=== PATIENT | male | born 1990 | race African-American/Black ===

== ENCOUNTER 2017-02-19 14:41 | Emergency (ER) | payer SELFPAY ==
[~2017-02-19] VITALS: Ht 185.4 cm; Wt 136.4 kg
[~2017-02-19 14:41] MED LIST: AMOXICILLIN500 MG PO; AUGMENTIN500TAB PO; BACTRIM DS1 TAB PO; COGENTIN1 MG PO; CORTISPORIN OTI10 M2 OT; IBUPROFEN200 M1 OR; LORTAB5 PO; NO; RISPERDAL1 MG PO; RISPERDAL2 MG PO; TEGRETOL200 MG PO; VISTARIL50 MG OR; WELLBUTRIN150 MG PO; ZOFRAN ODT4 MG OR
[2017-02-19 15:15] LABS: HEMATOCRIT 50.3 % (39.0-50.0); HEMOGLOBIN 16.6 g/dl (14.0-18.0); IMMATURE GRANULOCYTES 0.4 % (0.0-1.0); MEAN CELL VOLUME 82.3 fL CALC (80.0-100.0); MEAN CORPUSCULAR HGB 27.2 pG CALC (26.0-32.0); NEUT# 6.83 thou/uL (1.82-7.42); RED BLOOD COUNT 6.11 mill/uL (4.70-6.10); RED CELL DISTRI WIDTH 13.9 % (11.5-15.5)
[2017-02-19 15:36] LABS: ALBUMIN 4.9 g/dL (3.2-5.0); ALKALINE PHOSPHATASE 50 u/l (38-126); ANION GAP 19 (6-22 (CALC)); BUN 15 mg/dL (9-20); BUN/CREATININE RATIO 20 (12-20 (CALC)); CALCIUM 10.1 mg/dL (8.4-10.2); CARBON DIOXIDE 21 mmol/l (22-30); CHLORIDE 109 mmol/l (95-108); CREATININE 0.8 mg/dL (0.7-1.3); GFR > 60 ML/MIN (>=60 (CALC)); GFR FOR AFR.AMER. > 60 ML/MIN (>=60 (CALC)); GLUCOSE 91 mg/dL (75-110); POTASSIUM 4.9 mmol/l (3.5-5.1); SGOT/AST 36 u/l (17-59); SGPT/ALT 27 u/l (21-72); SODIUM 144 mmol/l (137-146); TOTAL PROTEIN 8.1 g/dL (6.3-8.2)
[2017-02-19 15:47] LABS: MYOGLOBIN 30 ng/mL (0 - 121)
[2017-02-19] MEDS ORDERED: MOTRIN800 MG PO (15:59)
[2017-02-19 16:33] VITALS: BP 1118/82
== END 2017-02-19 16:41 | disposition home or self-care (01) | DRG 313 ==
LOC: ED 14:41
PROVIDERS: Emergency Medicine
DX: R07.9 Chest pain, unspecified (principal); I10 Essential (primary) hypertension; Z72.0 Tobacco use

== ENCOUNTER 2017-05-18 10:35 | Emergency (ER) | payer SELFPAY ==
[~2017-05-18] VITALS: Ht 185.4 cm; Wt 122.0 kg
[~2017-05-18 10:35] MED LIST changes: +MOTRIN800 MG PO
[2017-05-18] MEDS ORDERED: NAPROSYN500 MG PO (12:07)
[2017-05-18 12:08] VITALS: BP 136/76
== END 2017-05-18 12:17 | disposition home or self-care (01) | DRG 605 ==
LOC: ED 10:35
DX: S20.212A Contusion of left front wall of thorax, initial encounter (principal); S43.402A Unspecified sprain of left shoulder joint, initial encounter; V49.9XXA Car occupant (driver) (passenger) injured in unspecified traffic accident, initial encounter; Y92.410 Unspecified street and highway as the place of occurrence of the external cause

== ENCOUNTER 2018-03-10 02:24 | Emergency (ER) | payer SELFPAY ==
[~2018-03-10] VITALS: Ht 185.4 cm; Wt 133.6 kg
[~2018-03-10 02:24] MED LIST changes: +NAPROSYN500 MG PO
[2018-03-10] MEDS ORDERED: DOXYCYCL HYC100 MG PO (02:47)
[2018-03-10 02:59] VITALS: BP 150/91
== END 2018-03-10 02:56 | disposition home or self-care (01) | DRG 607 ==
LOC: ED 02:24
DX: L73.2 Hidradenitis suppurativa (principal); F17.200 Nicotine dependence, unspecified, uncomplicated

== ENCOUNTER 2018-03-12 17:04 | Emergency (ER) | payer SELFPAY ==
[~2018-03-12] VITALS: Ht 185.4 cm; Wt 118.2 kg
[~2018-03-12 17:04] MED LIST changes: +DOXYCYCL HYC100 MG PO
[2018-03-12 17:17] VITALS: BP 122/59
[2018-03-12 18:01] LABS: INFLUENZA A NONE DETECTED (NONE DETECT); INFLUENZA B NONE DETECTED (NONE DETECT)
[2018-03-12] MEDS ORDERED: PHENERGAN25 MG RE (23:41)
== END 2018-03-12 17:35 | disposition left against medical advice (07) | DRG 392 ==
LOC: ED 17:04 → LWOBS 17:34 → ED 17:35 → LWOBS 17:35
PROVIDERS: Family Medicine
DX: R11.2 Nausea with vomiting, unspecified (principal); Z91.19 Patient's noncompliance with other medical treatment and regimen; F17.210 Nicotine dependence, cigarettes, uncomplicated

== ENCOUNTER 2018-03-12 23:12 | Emergency (ER) | payer SELFPAY ==
[~2018-03-12] VITALS: Ht 185.4 cm; Wt 118.0 kg
[2018-03-12] MEDS ORDERED: PHENERGAN25 MG RE (23:41)
[2018-03-13 00:10] VITALS: BP 133/74
== END 2018-03-13 00:10 | disposition home or self-care (01) | DRG 392 ==
LOC: ED 23:12
DX: K52.9 Noninfective gastroenteritis and colitis, unspecified (principal); R11.2 Nausea with vomiting, unspecified; R19.7 Diarrhea, unspecified; R10.33 Periumbilical pain; Z91.19 Patient's noncompliance with other medical treatment and regimen; F17.210 Nicotine dependence, cigarettes, uncomplicated

== ENCOUNTER 2018-04-23 03:46 | Emergency (ER) | payer SELFPAY ==
[~2018-04-23] VITALS: Ht 185.4 cm; Wt 118.0 kg
[~2018-04-23 03:46] MED LIST changes: +PHENERGAN25 MG RE
[2018-04-23 04:40] LABS: URINE BILIRUBIN - DIPSTICK NEGATIVE (NEGATIVE); URINE BLOOD DIPSTICK NEGATIVE (NEGATIVE); URINE COLOR YELLOW; URINE GLUCOSE - DIPSTICK NEGATIVE (NEGATIVE); URINE KETONE NEGATIVE (NEGATIVE); URINE LEUK ESTERASE NEGATIVE (NEGATIVE); URINE NITRITE - DIPSTICK NEGATIVE (Negative); URINE PROTEIN - DIPSTICK NEGATIVE (NEG-TRACE); URINE SPECIFIC GRAVITY 1.025; URINE UROBILINOGEN - DIPSTICK 0.2 E.U./dL (0.2)
[2018-04-23 04:41] LABS: URINE CLARITY CLEAR
[2018-04-23 04:42] LABS: HEMATOCRIT 48.6 % (39.0-50.0); HEMOGLOBIN 15.6 g/dl (14.0-18.0); IMMATURE GRANULOCYTES 0.6 % (0.0-5.0); MEAN CELL VOLUME 83.6 fL CALC (80.0-100.0); MEAN CORPUSCULAR HGB 26.9 pG CALC (26.0-32.0); MEAN CORPUSCULAR HGB CONC 32.1 g/L CALC (32.0-36.0); NEUT# 6.03 thou/uL (1.82-7.42); RED BLOOD COUNT 5.81 mill/uL (4.70-6.10)
[2018-04-23 04:50] LABS: ALBUMIN 4.1 g/dL (3.2-5.0); ALKALINE PHOSPHATASE 42 u/l (38-126); ANION GAP 11 (6-22 (CALC)); BILIRUBIN, TOTAL 0.4 mg/dL (0.0-1.4); BUN 14 mg/dL (9-20); BUN/CREATININE RATIO 18 (12-20 (CALC)); CHLORIDE 106 mmol/l (95-108); CREATININE 0.8 mg/dL (0.7-1.3); GFR > 60 ML/MIN (>=60 (CALC)); GFR FOR AFR.AMER. > 60 ML/MIN (>=60 (CALC)); POTASSIUM 4.3 mmol/l (3.5-5.1); SGOT/AST 20 u/l (17-59); SODIUM 142 mmol/l (137-146)
[2018-04-23 04:52] LABS: CARBON DIOXIDE 29 mmol/l (22-30)
[2018-04-23] MEDS ORDERED: PHENERGAN25 MG/TAB PO (05:03)
[2018-04-23 05:15] VITALS: BP 143/80
== END 2018-04-23 05:15 | disposition home or self-care (01) | DRG 392 ==
LOC: ED 03:46
PROVIDERS: Family Medicine
DX: K52.9 Noninfective gastroenteritis and colitis, unspecified (principal); F17.210 Nicotine dependence, cigarettes, uncomplicated

== ENCOUNTER 2018-04-26 16:02 | Emergency (ER) | payer SELFPAY ==
[~2018-04-26] VITALS: Ht 185.4 cm; Wt 122.7 kg
[~2018-04-26 16:02] MED LIST changes: +PHENERGAN25 MG/TAB PO
[2018-04-26] MEDS ORDERED: ZOFRAN4 MG/TAB PO (16:52)
[2018-04-26] MEDS ORDERED: PEPCID20 MG PO (16:52)
[2018-04-26 17:07] VITALS: BP 126/66
== END 2018-04-26 17:08 | disposition home or self-care (01) | DRG 392 ==
LOC: ED 16:02
DX: R10.13 Epigastric pain (principal); R11.2 Nausea with vomiting, unspecified; R19.7 Diarrhea, unspecified; F17.210 Nicotine dependence, cigarettes, uncomplicated

== ENCOUNTER 2019-03-08 20:39 | Emergency (ER) | payer SELFPAY ==
[~2019-03-08] VITALS: Ht 185.4 cm; Wt 127.2 kg
[~2019-03-08 20:39] MED LIST changes: +PEPCID20 MG PO; +ZOFRAN4 MG/TAB PO
[2019-03-08] MEDS ORDERED: ONDANSETRON4 MG PO (21:30)
[2019-03-08 21:41] VITALS: BP 114/62
== END 2019-03-08 21:41 | disposition home or self-care (01) | DRG 392 ==
LOC: ED 20:39
DX: R11.2 Nausea with vomiting, unspecified (principal); R19.7 Diarrhea, unspecified; F17.210 Nicotine dependence, cigarettes, uncomplicated

== ENCOUNTER 2023-01-03 08:18 | Emergency (ER) | payer OTHER ==
[~2023-01-03] VITALS: Ht 185.4 cm; Wt 140.0 kg
[~2023-01-03 08:18] MED LIST changes: +ONDANSETRON4 MG PO
[2023-01-03] MEDS ORDERED: VOLTAREN1%GEL TOP (09:30)
[2023-01-03] MEDS ORDERED: NAPROXEN500 MG PO (09:30)
[2023-01-03 09:32] VITALS: BP 167/95
== END 2023-01-03 09:40 | disposition home or self-care (01) ==
LOC: ED 08:18
DX: M25.512 Pain in left shoulder (principal); F17.200 Nicotine dependence, unspecified, uncomplicated